=== PATIENT | female | born 1980 | race African-American/Black ===

== ENCOUNTER 2019-06-16 07:23 | Inpatient (IN) | payer MEDICAID ==
[~2019-06-16] VITALS: Ht 167.6 cm; Wt 130.0 kg
[2019-06-16] MEDS ORDERED: METHYLPREDNISOLONE SOD SUCC 125 MG/2 ML VIAL IV STA (07:41)
[2019-06-16] MEDS ORDERED: MORPHINE SULFATE 4 MG/ML CPJ (NOT FOR IM USE) IV STA (07:41)
[2019-06-16] MEDS ORDERED: ALBUTEROL (0.083%) 2.5MG/3ML NEB HHN STA (07:41)
[2019-06-16] MEDS ORDERED: IPRATROPIUM BROMIDE (0.02%) 0.5MG/2.5ML NEB HHN STA (07:41)
[2019-06-16] MEDS ORDERED: ONDANSETRON HCL 4MG/2ML INJ IV STA (07:41)
[2019-06-16] MEDS ORDERED: MAGNESIUM 2 G PREMIX 50 ML IV STA (07:41)
[2019-06-16] MEDS ORDERED: ASPIRIN 81MG TABLET PO ONE (07:45)
[2019-06-16 08:12] LABS: BASOPHILS % 1.3 % (0.0-2.0); EOSINOPHILS % 0.2 % (0.0-5.0); HEMOGLOBIN. 11.5 g/dL (12.0-16.0); LYMPHOCYTES % 35.1 % (20.0-50.0); MEAN CORPUSCULAR HEMOGLOBIN 26.7 pg (28.0-32.0); MEAN CORPUSCULAR VOLUME 81.1 fL (81.0-99.0); MEAN PLATELET VOLUME 8.3 fl (7.4-10.4); MONOCYTES % 8.1 % (2.0-8.0); NEUTROPHILS % 55.3 % (40.0-76.0); PLATELET 380 x1000/uL (130-400); RED BLOOD CELL COUNT 4.31 mill/uL (4.2-5.4); RED CELL DISTRIBUTION WIDTH 16.5 % (11.6-14.6)
[2019-06-16 08:18] LABS: CHLORIDE 106 mEq/L (98-107)
[2019-06-16 08:28] LABS: HCG SCREEN NEGATIVE
[2019-06-16] MEDS ORDERED: LISINOPRIL 20MG TABLET PO ONE (08:30)
[2019-06-16] MEDS ORDERED: HYDROCHLOROTHIAZIDE 25MG TABLET PO ONE (08:30)
[2019-06-16] MEDS ORDERED: FUROSEMIDE 20MG/2ML VIAL IVP ONE (08:45)
[2019-06-16] MEDS ORDERED: DIPHENHYDRAMINE 50MG/ML VIAL IV PRN (10:45)
[2019-06-16] MEDS ORDERED: ONDANSETRON HCL 4MG/2ML INJ IV PRN (10:45)
[2019-06-16] MEDS ORDERED: GUAIFENESIN 200MG/10ML SUGAR FREE UDC PO PRN (10:45)
[2019-06-16] MEDS ORDERED: HYDROCODONE/ACETAMINOPHEN 5/325MG TABLET PO PRN (10:45)
[2019-06-16] MEDS ORDERED: IPRATROPIUM/ALBUTEROL 0.5-3(2.5)MG/3ML NEB INH PRN (10:45)
[2019-06-16] MEDS ORDERED: HYDRALAZINE 20MG/ML VIAL IV ONE (10:45)
[2019-06-16] MEDS ORDERED: MAGNESIUM/ALUMINUM HYDROXIDE/SIMETHICONE 30ML UDC PO PRN (10:45)
[2019-06-16] MEDS ORDERED: ACETAMINOPHEN 325MG TABLET PO PRN (10:45)
[2019-06-16 11:13] LABS: PHOSPHORUS 2.5 mg/dL (2.5-4.9)
[2019-06-16] MEDS ORDERED: HYDRALAZINE 20MG/ML VIAL IV NR (11:15)
[2019-06-16] MEDS: CLONIDINE 0.1MG TABLET PO PRN (11:18)
[2019-06-16] MEDS ORDERED: HYDR25TA PO (13:04)
[2019-06-16] MEDS ORDERED: ALBU2.5V13 IH (13:04)
[2019-06-16] MEDS ORDERED: LISI10TA5 PO (13:04)
[2019-06-16] MEDS ORDERED: TIOT4MIS2 IH (13:04)
[2019-06-16] MEDS ORDERED: ASPI-1393 PO (13:04)
[2019-06-16 13:15] VITALS: BP 188/104
[2019-06-16] MEDS: ENOXAPARIN 40MG/0.4ML SYR SUBCUT SCH ×2 (13:31→21:54)
[2019-06-16] MEDS: FUROSEMIDE 40MG/4ML VIAL IVP SCH ×2 (14:11→19:02)
[2019-06-16] MEDS: DOCUSATE SODIUM 100MG CAPSULE PO PRN (14:11)
[2019-06-16] MEDS: CARVEDILOL 3.125 MG TABLET PO SCH ×2 (14:11→21:53)
[2019-06-16] MEDS: AMLODIPINE 5MG TABLET PO SCH ×2 (14:11→21:54)
[2019-06-16 16:00] VITALS: BP 160/67
[2019-06-16 17:33] LABS: CREATINE KINASE 88 IU/L (26-192); CREATINE KINASE MB FRACTION < 1.0 ng/mL (0.5-3.6)
[2019-06-16] MEDS: CYCLOBENZAPRINE 10MG TABLET PO PRN (19:02)
[2019-06-16 20:00] VITALS: BP 175/94
[2019-06-16] MEDS: LISINOPRIL 20MG TABLET PO SCH (21:54)
[2019-06-17 00:16] VITALS: BP 163/95
[2019-06-17 01:05] LABS: CREATINE KINASE 85 IU/L (26-192)
[2019-06-17 01:06] LABS: CREATINE KINASE MB FRACTION < 1.0 ng/mL (0.5-3.6)
[2019-06-17 04:00] VITALS: BP 151/79
[2019-06-17 06:03] LABS: CHLORIDE 103 mEq/L (98-107)
[2019-06-17 06:17] LABS: LDL CHOLESTEROL 121 mg/dL (5-100)
[2019-06-17 06:18] LABS: HDL CHOLESTEROL 63 mg/dL (40-59)
[2019-06-17 06:21] LABS: HEMATOCRIT. 35.9 % (36.0-48.0); HEMOGLOBIN. 11.5 g/dL (12.0-16.0); LYMPHOCYTES % 15.7 % (20.0-50.0); MEAN CORPUSCULAR HEMOGLOBIN 25.8 pg (28.0-32.0); MEAN CORPUSCULAR VOLUME 80.3 fL (81.0-99.0); MEAN PLATELET VOLUME 8.7 fl (7.4-10.4); MONOCYTES % 7.3 % (2.0-8.0); PLATELET 424 x1000/uL (130-400); RED BLOOD CELL COUNT 4.48 mill/uL (4.2-5.4); RED CELL DISTRIBUTION WIDTH 16.6 % (11.6-14.6)
[2019-06-17 08:00] VITALS: BP 193/100
[2019-06-17] MEDS: CLONIDINE 0.1MG TABLET PO PRN (08:06)
[2019-06-17] MEDS: DOCUSATE SODIUM 100MG CAPSULE PO PRN (08:06)
[2019-06-17] MEDS: FUROSEMIDE 40MG/4ML VIAL IVP SCH ×2 (08:06→16:25)
[2019-06-17] MEDS: AMLODIPINE 5MG TABLET PO SCH (08:07)
[2019-06-17] MEDS: LISINOPRIL 20MG TABLET PO SCH ×2 (08:07→22:24)
[2019-06-17] MEDS: CARVEDILOL 3.125 MG TABLET PO SCH (08:07)
[2019-06-17] MEDS: ENOXAPARIN 40MG/0.4ML SYR SUBCUT SCH ×2 (08:08→22:25)
[2019-06-17 12:00] VITALS: BP 167/104
[2019-06-17] MEDS: HYDRALAZINE HCL 100MG TABLET PO SCH ×2 (12:50→22:24)
[2019-06-17] MEDS: POTASSIUM CHLORIDE 20MEQ TABLET SR PO SCH (14:34)
[2019-06-17] MEDS: VERAPAMIL HCL 40MG TABLET PO SCH ×2 (14:34→22:24)
[2019-06-17] MEDS: CLONIDINE 0.1MG TABLET PO SCH ×2 (14:34→22:25)
[2019-06-17 16:00] VITALS: BP 142/76
[2019-06-17 16:14] LABS: CLARITY URINE CLEAR (CLEAR); COLOR URINE YELLOW (YELLOW); KETONES URINE NEGATIVE (NEGATIVE); LEUKOCYTE ESTERASE URINE NEGATIVE (NEGATIVE); NITRITE URINE NEGATIVE (NEGATIVE); OCCULT BLOOD URINE 2+ (NEGATIVE); PH URINE 5.5 (4.5-8.0); PROTEIN URINE NEGATIVE (NEGATIVE); SPECIFIC GRAVITY URINE 1.016 (1.005-1.030); UROBILINOGEN URINE 0.2 E.U./dL (0.2-1.0)
[2019-06-17 16:22] LABS: *AMPHETAMINES SCREEN URINE NEGATIVE (NEGATIVE); *BARBITURATES SCREEN URINE NEGATIVE (NEGATIVE); *BENZODIAZEPINES SCREEN URINE NEGATIVE (NEGATIVE); *COCAINE SCREEN URINE NEGATIVE (NEGATIVE)
[2019-06-17 16:23] LABS: METHADONE URINE SCREEN NEGATIVE (NEGATIVE); PHENCYCLIDINE URINE SCREEN NEGATIVE (NEGATIVE)
[2019-06-17 16:28] LABS: CANNABINOID URINE SCREEN PRESUMTIVE POSITIVE (NEGATIVE); OPIATES URINE SCREEN PRESUMTIVE POSITIVE (NEGATIVE)
[2019-06-17 20:00] VITALS: BP 179/98
[2019-06-17] MEDS ORDERED: METOPROLOL TARTRATE 50MG TABLET PO SCH (21:00)
[2019-06-17] MEDS ORDERED: ATORVASTATIN CALCIUM 40MG TABLET PO SCH (21:00)
[2019-06-17] MEDS: CYCLOBENZAPRINE 10MG TABLET PO PRN (22:24)
[2019-06-17] MEDS: BUDESONIDE 0.5MG/2ML NEB HHN SCH (23:44)
[2019-06-18] VITALS: BP 148/78
[2019-06-18 05:25] VITALS: BP 195/112
[2019-06-18] MEDS: VERAPAMIL HCL 40MG TABLET PO SCH (05:27)
[2019-06-18] MEDS: CLONIDINE 0.1MG TABLET PO SCH (05:27)
[2019-06-18] MEDS: CLONIDINE 0.1MG TABLET PO PRN (05:27)
[2019-06-18 06:22] VITALS: BP 139/91
[2019-06-18 08:00] VITALS: BP 124/86
[2019-06-18] MEDS: LISINOPRIL 20MG TABLET PO SCH (08:16)
[2019-06-18] MEDS: CYCLOBENZAPRINE 10MG TABLET PO PRN (08:16)
[2019-06-18] MEDS: HYDRALAZINE HCL 100MG TABLET PO SCH (08:16)
[2019-06-18] MEDS: POTASSIUM CHLORIDE 20MEQ TABLET SR PO SCH (08:17)
[2019-06-18] MEDS: ENOXAPARIN 40MG/0.4ML SYR SUBCUT SCH (08:17)
[2019-06-18] MEDS: FUROSEMIDE 40MG/4ML VIAL IVP SCH (08:17)
[2019-06-18] MEDS: BUDESONIDE 0.5MG/2ML NEB HHN SCH (09:03)
[2019-06-18 12:00] VITALS: BP 132/68
[2019-06-18] MEDS ORDERED: HYDR100T26 PO (16:10)
[2019-06-18] MEDS ORDERED: POTA20TA82 PO (16:10)
[2019-06-18] MEDS ORDERED: LISI-604 PO (16:10)
[2019-06-18] MEDS ORDERED: FURO40TA5 MT ×2 (16:10→16:12)
[2019-06-18] MEDS ORDERED: CLON0.1T14 PO (16:10)
[2019-06-18] MEDS ORDERED: VER40 PO (16:10)
[2019-06-18] MEDS ORDERED: LIP40 PO (16:10)
[2019-06-18 17:21] VITALS: BP 151/94
== END 2019-06-18 17:40 | disposition home or self-care (01) | DRG 194 ==
LOC: ER 07:23 → 7WST 09:04 → EDBEDREQ 09:06 → ENRESERV 10:13
PROVIDERS: ADMIT Internal Medicine; ATTEND Internal Medicine
DX: I11.0 Hypertensive heart disease with heart failure (principal); E66.01 Morbid (severe) obesity due to excess calories; I50.33 Acute on chronic diastolic (congestive) heart failure; E83.41 Hypermagnesemia; R07.2 Precordial pain; D64.9 Anemia, unspecified; J44.9 Chronic obstructive pulmonary disease, unspecified; F10.10 Alcohol abuse, uncomplicated; Z82.49 Family history of ischemic heart disease and other diseases of the circulatory system; Z98.891 History of uterine scar from previous surgery; Z71.3 Dietary counseling and surveillance; Z68.42 Body mass index [BMI] 45.0-49.9, adult
CPT/HCPCS: 36415; 71045; 72070; 72100; 80061; 80305; 82550; 82553; 83036; 83735; 83880; 84100; 84443; 84484; 84703; 93005; 93306; 93970; 94640; 94644; 96365; 96375; 97162; 97166; 99291; J0360; J1650; J1940; J2270; J2405; J2930; J3475; J7611; J7626

== ENCOUNTER 2021-05-31 19:13 | Inpatient (IN) | payer OTHER ==
[~2021-05-31] VITALS: Ht 167.6 cm; Wt 165.6 kg
[~2021-05-31 19:13] MED LIST: ALBU2.5V13 IH; ASPI-1497 PO; DILT120C88 PO; FERR325T6 MT; FLUT100B INH; FLUT1BLS3 INH; FURO-151 MT; FURO40TA5 PO; HYDR100T26 PO; HYDR25TA PO; IBUP-2030 MT; IPRA3AMP31 IH; LOSA100T3 PO; METO100T16 PO; MINO2.5T19 PO; POTA-9 MT; QUET200T MT; SERT100T PO; TIOT4MIS2 IH; TRAZ-252 MT; VARE0.5T MT
[2021-05-31 21:45] LABS: BASOPHILS % 0.4 % (0.0-2.0); EOSINOPHILS % 0.1 % (0.0-5.0); HEMATOCRIT. 32.6 % (36.0-48.0); HEMOGLOBIN. 11.2 g/dL (12.0-16.0); LYMPHOCYTES % 31.3 % (20.0-50.0); MEAN CORPUSCULAR HEMOGLOBIN 28.7 pg (28.0-32.0); MEAN CORPUSCULAR VOLUME 83.9 fL (81.0-99.0); MEAN PLATELET VOLUME 8.4 fl (7.4-10.4); MONOCYTES % 11.2 % (2.0-8.0); PLATELET 330 x1000/uL (130-400); RED BLOOD CELL COUNT 3.88 mill/uL (4.2-5.4); RED CELL DISTRIBUTION WIDTH 15.7 % (11.6-14.6)
[2021-05-31 21:50] LABS: CHLORIDE 106 mEq/L (98-107)
[2021-05-31] MEDS ORDERED: FUROSEMIDE 40MG/4ML VIAL IVP ONE (22:45)
[2021-05-31] MEDS ORDERED: POTASSIUM CHLORIDE 20MEQ TABLET SR PO ONE (23:00)
[2021-06-01] MEDS ORDERED: HYDRALAZINE HCL 50MG TABLET PO SCH (07:00)
[2021-06-01] MEDS: FUROSEMIDE 40MG/4ML VIAL IVP SCH ×2 (07:04→18:10)
[2021-06-01 08:00] VITALS: BP 172/77
[2021-06-01] MEDS ORDERED: ENOXAPARIN 40MG/0.4ML SYR SUBCUT SCH (09:00)
[2021-06-01] MEDS ORDERED: LISINOPRIL 20MG TABLET PO SCH (09:00)
[2021-06-01] MEDS: ASPIRIN 81MG TABLET PO SCH (09:08)
[2021-06-01] MEDS: ENOXAPARIN 40MG/0.4ML SYR SUBCUT SCH ×2 (09:09→20:26)
[2021-06-01 12:00] VITALS: BP 202/100
[2021-06-01] MEDS: NICOTINE 14MG PATCH TD SCH (13:06)
[2021-06-01] MEDS: CLONIDINE 0.1MG TABLET PO PRN ×2 (13:06→20:26)
[2021-06-01] MEDS: HYDRALAZINE HCL 100MG TABLET PO SCH ×2 (13:07→21:39)
[2021-06-01 14:07] VITALS: BP 183/91
[2021-06-01] MEDS ORDERED: CLONIDINE 0.1MG TABLET PO SCH ×2 (15:00→22:00)
[2021-06-01 16:00] VITALS: BP 161/86
[2021-06-01] MEDS: DILTIAZEM HCL 60MG TABLET PO SCH ×2 (18:10→23:26)
[2021-06-01 20:00] VITALS: BP 176/96
[2021-06-01] MEDS: LISINOPRIL 20MG TABLET PO SCH (20:26)
[2021-06-01] MEDS: SERTRALINE HCL 100MG TABLET PO SCH (20:27)
[2021-06-01] MEDS: QUETIAPINE FUMARATE 50MG TABLET PO SCH (20:27)
[2021-06-01] MEDS: TRAZODONE HCL 50MG TABLET PO SCH (20:27)
[2021-06-01] MEDS: CLONIDINE 0.2MG TABLET PO SCH (21:39)
[2021-06-02] VITALS (7 sets, daily range): BP systolic 142–207; BP diastolic 71–116
[2021-06-02] MEDS: HYDRALAZINE HCL 100MG TABLET PO SCH ×3 (05:12→23:33)
[2021-06-02] MEDS: DILTIAZEM HCL 60MG TABLET PO SCH ×2 (05:12→11:40)
[2021-06-02] MEDS: CLONIDINE 0.2MG TABLET PO SCH ×3 (05:12→23:34)
[2021-06-02] MEDS: FUROSEMIDE 40MG/4ML VIAL IVP SCH (05:12)
[2021-06-02] MEDS: ENOXAPARIN 40MG/0.4ML SYR SUBCUT SCH ×2 (09:19→20:55)
[2021-06-02] MEDS: NICOTINE 14MG PATCH TD SCH (09:19)
[2021-06-02] MEDS: ASPIRIN 81MG TABLET PO SCH (09:19)
[2021-06-02] MEDS: LISINOPRIL 20MG TABLET PO SCH ×2 (09:20→20:54)
[2021-06-02] MEDS ORDERED: METOLAZONE 2.5MG TABLET PO NR (11:15)
[2021-06-02 12:51] LABS: CHLORIDE 102 mEq/L (98-107)
[2021-06-02] MEDS: POTASSIUM CHLORIDE 20MEQ TABLET SR PO SCH (16:17)
[2021-06-02] MEDS: CLONIDINE 0.1MG TABLET PO PRN (16:18)
[2021-06-02] MEDS: FUROSEMIDE 100MG/10ML VIAL IVP SCH (17:44)
[2021-06-02] MEDS: DILTIAZEM HCL 90MG TABLET PO SCH (17:45)
[2021-06-02] MEDS: SERTRALINE HCL 100MG TABLET PO SCH (20:44)
[2021-06-02] MEDS: QUETIAPINE FUMARATE 50MG TABLET PO SCH (20:53)
[2021-06-02] MEDS: MINOXIDIL 2.5MG TABLET PO SCH (20:53)
[2021-06-02] MEDS: TRAZODONE HCL 50MG TABLET PO SCH (20:54)
[2021-06-03] VITALS: BP 150/97
[2021-06-03] MEDS: DILTIAZEM HCL 90MG TABLET PO SCH ×2 (01:05→05:53)
[2021-06-03 04:00] VITALS: BP 155/86
[2021-06-03 05:38] LABS: CHLORIDE 98 mEq/L (98-107)
[2021-06-03] MEDS: HYDRALAZINE HCL 100MG TABLET PO SCH ×3 (05:54→22:25)
[2021-06-03] MEDS: CLONIDINE 0.2MG TABLET PO SCH ×3 (05:55→22:25)
[2021-06-03] MEDS: FUROSEMIDE 100MG/10ML VIAL IVP SCH ×2 (05:55→18:05)
[2021-06-03 08:20] VITALS: BP 157/73
[2021-06-03] MEDS: LISINOPRIL 20MG TABLET PO SCH ×2 (09:46→21:06)
[2021-06-03] MEDS: POTASSIUM CHLORIDE 20MEQ TABLET SR PO SCH (09:47)
[2021-06-03] MEDS: ASPIRIN 81MG TABLET PO SCH (09:47)
[2021-06-03] MEDS: ENOXAPARIN 40MG/0.4ML SYR SUBCUT SCH ×2 (09:47→21:05)
[2021-06-03] MEDS: MINOXIDIL 2.5MG TABLET PO SCH ×2 (09:47→21:06)
[2021-06-03] MEDS: NICOTINE 14MG PATCH TD SCH (09:47)
[2021-06-03 12:00] VITALS: BP 155/85
[2021-06-03 16:00] VITALS: BP 159/88
[2021-06-03] MEDS: DILTIAZEM HCL 60MG TABLET PO SCH (18:06)
[2021-06-03 20:00] VITALS: BP 162/79
[2021-06-03 20:18] LABS: BG BASE EXCESS 12.6 mmol/L (-2.0-2.0); BG CARBOXYHEMOGLOBIN 1.1 % (0.5-1.5); BG DEOXYHEMOGLOBIN 7.7 % (0.0-5.0); BG HCO3 ACT 38.1 mmol/L (22.0-26.0); BG METHEMOGLOBIN 0.2 % (0.0-1.5); BG OXYGEN SATURATION 92.2 % (92.0-98.5); BG PCO2 52.3 mmHg (35.0-45.0); BG PO2 60.9 mmHg (75.0-100.0); BG SAMPLE SITE LEFT RADIAL; BG TOTAL HEMOGLOBIN 12.8 g/dL (12.0-18.0); BG VENT MODE ROOM AIR
[2021-06-03] MEDS: QUETIAPINE FUMARATE 50MG TABLET PO SCH (21:05)
[2021-06-03] MEDS: SERTRALINE HCL 100MG TABLET PO SCH (21:05)
[2021-06-03] MEDS: TRAZODONE HCL 50MG TABLET PO SCH (21:06)
[2021-06-03] MEDS: BUDESONIDE 0.5MG/2ML NEB HHN SCH (21:30)
[2021-06-04] VITALS: BP 159/72
[2021-06-04] MEDS: DILTIAZEM HCL 60MG TABLET PO SCH ×3 (00:44→12:56)
[2021-06-04 04:00] VITALS: BP 127/75
[2021-06-04] MEDS: CLONIDINE 0.2MG TABLET PO SCH ×2 (06:34→14:24)
[2021-06-04] MEDS: HYDRALAZINE HCL 100MG TABLET PO SCH ×2 (06:34→14:24)
[2021-06-04] MEDS: FUROSEMIDE 100MG/10ML VIAL IVP SCH (06:35)
[2021-06-04 08:29] VITALS: BP 146/78
[2021-06-04] MEDS: ASPIRIN 81MG TABLET PO SCH (08:36)
[2021-06-04] MEDS: POTASSIUM CHLORIDE 20MEQ TABLET SR PO SCH (08:36)
[2021-06-04] MEDS: NICOTINE 14MG PATCH TD SCH (08:36)
[2021-06-04] MEDS: MINOXIDIL 2.5MG TABLET PO SCH (08:36)
[2021-06-04] MEDS: LISINOPRIL 20MG TABLET PO SCH (08:36)
[2021-06-04] MEDS: ENOXAPARIN 40MG/0.4ML SYR SUBCUT SCH (08:37)
[2021-06-04] MEDS: BUDESONIDE 0.5MG/2ML NEB HHN SCH (09:14)
[2021-06-04 12:10] VITALS: BP 155/77
[2021-06-04] MEDS ORDERED: POTA20TA82 MT (12:54)
[2021-06-04] MEDS ORDERED: FURO80TA87 MT (12:54)
[2021-06-04 13:35] VITALS: BP 155/77
[2021-06-04] MEDS ORDERED: MINOXIDIL 2.5MG TABLET PO SCH (21:00)
== END 2021-06-04 14:50 | disposition home or self-care (01) | DRG 133 ==
LOC: ER 20:08 → 5WST 22:48 → ENRESERV 06-01 04:45
PROVIDERS: ADMIT Internal Medicine; ATTEND Internal Medicine
PROC: 5A09457 Assistance with Respiratory Ventilation, 24-96 Consecutive Hours, Continuous Positive Airway Pressure (ICD-10-PCS; principal; 2021-06-01)
DX: J96.01 Acute respiratory failure with hypoxia (principal); I50.33 Acute on chronic diastolic (congestive) heart failure; Z68.43 Body mass index [BMI] 50.0-59.9, adult; E66.2 Morbid (severe) obesity with alveolar hypoventilation; I11.0 Hypertensive heart disease with heart failure; J44.9 Chronic obstructive pulmonary disease, unspecified; F41.9 Anxiety disorder, unspecified; F32.9 Major depressive disorder, single episode, unspecified; F17.210 Nicotine dependence, cigarettes, uncomplicated; E87.6 Hypokalemia; D64.9 Anemia, unspecified; Z98.891 History of uterine scar from previous surgery; Z79.899 Other long term (current) drug therapy; Z79.1 Long term (current) use of non-steroidal anti-inflammatories (NSAID); Z71.6 Tobacco abuse counseling
CPT/HCPCS: 36415; 36600; 71045; 80048; 80053; 82375; 82805; 83880; 84484; 85025; 93005; 94640; 94660; 99285; C1893; J1650; J1940; J7626

== ENCOUNTER 2022-02-16 15:47 | Inpatient (IN) | payer MEDICAID, OTHER ==
[~2022-02-16] VITALS: Ht 167.6 cm; Wt 150.8 kg
[~2022-02-16 15:47] MED LIST changes: +FURO80TA87 MT; +POTA20TA82 MT
[2022-02-16 17:43] LABS: BASOPHILS % 0.7 % (0.0-2.0); EOSINOPHILS % 0.1 % (0.0-5.0); HEMATOCRIT. 38.9 % (36.0-48.0); HEMOGLOBIN. 13.3 g/dL (12.0-16.0); LYMPHOCYTES % 31.3 % (20.0-50.0); MEAN CORPUSCULAR HEMOGLOBIN 29.6 pg (28.0-32.0); MEAN CORPUSCULAR VOLUME 86.4 fL (81.0-99.0); MEAN PLATELET VOLUME 8.5 fl (7.4-10.4); MONOCYTES % 10.8 % (2.0-8.0); NEUTROPHILS % 57.1 % (40.0-76.0); PLATELET 335 x1000/uL (130-400)
[2022-02-16 17:47] LABS: CHLORIDE 103 mEq/L (98-107)
[2022-02-16] MEDS ORDERED: ENALAPRIL 1.25MG/ML VIAL 1ML IV ONE (18:00)
[2022-02-16] MEDS ORDERED: FUROSEMIDE 40MG/4ML VIAL IV ONE (18:00)
[2022-02-16] MEDS ORDERED: NITROGLYCERIN OINT 1GM/INCH UDPKT TD ONE (18:00)
[2022-02-16] MEDS ORDERED: LABETALOL 5MG/ML SYR 20 MG/4 ML SYRINGE IV NR (20:55)
[2022-02-16] MEDS ORDERED: HYDRALAZINE 20MG/ML VIAL IV ONE (21:00)
[2022-02-16] MEDS ORDERED: LABETALOL HCL VIAL 20 MG/4 ML VIAL IV ONE (21:00)
[2022-02-16] MEDS ORDERED: HYDROCODONE/ACETAMINOPHEN 10/325MG TABLET PO PRN (22:45)
[2022-02-17] MEDS: CLONIDINE 0.1MG TABLET PO PRN ×4 (01:44→16:49)
[2022-02-17] MEDS ORDERED: ONDANSETRON HCL 4MG/2ML INJ IV PRN (09:00)
[2022-02-17] MEDS: FUROSEMIDE 100MG/10ML VIAL IVP SCH ×2 (09:44→16:49)
[2022-02-17] MEDS: LOSARTAN POTASSIUM 100 MG TABLET PO SCH (09:44)
[2022-02-17 12:00] VITALS: BP 197/124
[2022-02-17] MEDS ORDERED: IPRATROPIUM/ALBUTEROL 0.5-3(2.5)MG/3ML NEB HHN PRN (12:00)
[2022-02-17 12:04] VITALS: BP 197/124
[2022-02-17] MEDS: CLONIDINE 0.2MG TABLET PO SCH ×2 (14:08→21:31)
[2022-02-17 16:00] VITALS: BP 181/118
[2022-02-17] MEDS: DILTIAZEM HCL 90MG TABLET PO SCH ×2 (16:50→23:02)
[2022-02-17 17:04] LABS: *BARBITURATES SCREEN URINE NEGATIVE (NEGATIVE); *BENZODIAZEPINES SCREEN URINE NEGATIVE (NEGATIVE)
[2022-02-17 17:05] LABS: *AMPHETAMINES SCREEN URINE NEGATIVE (NEGATIVE); *COCAINE SCREEN URINE NEGATIVE (NEGATIVE); METHADONE URINE SCREEN NEGATIVE (NEGATIVE); PHENCYCLIDINE URINE SCREEN NEGATIVE (NEGATIVE)
[2022-02-17 17:10] LABS: CANNABINOID URINE SCREEN PRESUMTIVE POSITIVE (NEGATIVE); OPIATES URINE SCREEN PRESUMTIVE POSITIVE (NEGATIVE)
[2022-02-17 20:00] VITALS: BP 164/112
[2022-02-17] MEDS: HYDRALAZINE 20MG/ML VIAL IV PRN (23:16)
[2022-02-18] VITALS: BP 179/113
[2022-02-18] MEDS: CLONIDINE 0.1MG TABLET PO PRN (02:10)
[2022-02-18 04:00] VITALS: BP 171/114
[2022-02-18] MEDS: DILTIAZEM HCL 90MG TABLET PO SCH ×2 (05:12→11:24)
[2022-02-18] MEDS: CLONIDINE 0.2MG TABLET PO SCH ×2 (05:13→14:22)
[2022-02-18 08:00] VITALS: BP 191/100
[2022-02-18] MEDS: HYDRALAZINE 20MG/ML VIAL IV PRN (09:37)
[2022-02-18] MEDS: LOSARTAN POTASSIUM 100 MG TABLET PO SCH (09:37)
[2022-02-18] MEDS: FUROSEMIDE 100MG/10ML VIAL IVP SCH (11:15)
[2022-02-18] MEDS ORDERED: NALOXONE HCL 0.4MG/ML VIAL IV PRN (11:15)
[2022-02-18] MEDS ORDERED: MINOXIDIL 2.5MG TABLET PO SCH ×2 (13:00→21:00)
[2022-02-18] MEDS ORDERED: METOLAZONE 2.5MG TABLET PO SCH (14:00)
[2022-02-18] MEDS ORDERED: DILTIAZEM HCL 60MG TABLET PO SCH (18:00)
== END 2022-02-18 16:34 | disposition left against medical advice (07) | DRG 194 ==
LOC: ER 15:47 → MICUSO 21:20 → 7EST 02-17 11:55
PROVIDERS: ADMIT Internal Medicine; ATTEND Internal Medicine
DX: I11.0 Hypertensive heart disease with heart failure (principal); I27.20 Pulmonary hypertension, unspecified; I50.33 Acute on chronic diastolic (congestive) heart failure; Z68.43 Body mass index [BMI] 50.0-59.9, adult; E66.01 Morbid (severe) obesity due to excess calories; J44.9 Chronic obstructive pulmonary disease, unspecified; F32.A Depression, unspecified; Z20.822 Contact with and (suspected) exposure to COVID-19; Z53.29 Procedure and treatment not carried out because of patient's decision for other reasons; F41.9 Anxiety disorder, unspecified; Z98.891 History of uterine scar from previous surgery; Z79.84 Long term (current) use of oral hypoglycemic drugs; Z79.899 Other long term (current) drug therapy; Z79.1 Long term (current) use of non-steroidal anti-inflammatories (NSAID); Z79.82 Long term (current) use of aspirin
CPT/HCPCS: 36415; 71045; 80053; 80305; 83880; 84484; 85025; 87426; 93005; 93306; 93970; 99291; J0360; J1940; J3490; J7040

== ENCOUNTER 2023-06-21 14:36 | Emergency (ER) | payer MEDICAID, OTHER ==
[~2023-06-21] VITALS: Ht 167.6 cm; Wt 143.0 kg
[~2023-06-21 14:36] MED LIST changes: -LOSA100T3 PO; +LOSA100T4 PO; +POTA-202 MT; +POTA-205 MT; -POTA-9 MT; -POTA20TA82 MT
[2023-06-21 14:44] VITALS: O2SAT 95
[2023-06-21 16:17] LABS: BASOPHILS % 0.6 % (0.0-2.0); HEMATOCRIT. 36.6 % (36.0-48.0); LYMPHOCYTES % 32.9 % (20.0-50.0); MEAN CORPUSCULAR HEMOGLOBIN 28.6 pg (28.0-32.0); MEAN PLATELET VOLUME 8.1 fl (7.4-10.4); MONOCYTES % 9.3 % (2.0-8.0); NEUTROPHILS % 57.2 % (40.0-76.0); PLATELET 370 x1000/uL (130-400); RED BLOOD CELL COUNT 4.21 mill/uL (4.2-5.4); RED CELL DISTRIBUTION WIDTH 17.7 % (11.6-14.6)
[2023-06-21 16:21] LABS: CHLORIDE 111 mEq/L (98-107)
[2023-06-21 16:36] LABS: HCG SCREEN NEGATIVE
[2023-06-21] MEDS ORDERED: FUROSEMIDE 40MG/4ML VIAL IVP ONE (17:00)
[2023-06-21] MEDS ORDERED: POTASSIUM CHLORIDE 20MEQ TABLET SR PO ONE (17:00)
[2023-06-21] MEDS ORDERED: ASPIRIN 81MG TABLET PO ONE (17:00)
[2023-06-21 17:25] VITALS: BP 158/92; PULSE 86; RESP 20; TEMP 98.6
[2023-06-30] MEDS ORDERED: METF-818 MT (22:30)
[2023-06-30] MEDS ORDERED: NIFE-32 MT (22:31)
[2023-06-30] MEDS ORDERED: CLON-457 PO (22:32)
[2023-06-30] MEDS ORDERED: LURA120T MT (22:34)
[2023-06-30] MEDS ORDERED: RISP05 MT (22:34)
== END 2023-06-21 18:37 | disposition left against medical advice (07) ==
LOC: ER 14:47 → CANBEDREQ 18:31 → ER 18:37
DX: R07.89 Other chest pain (principal); I10 Essential (primary) hypertension; F32.9 Major depressive disorder, single episode, unspecified; F41.9 Anxiety disorder, unspecified; I11.0 Hypertensive heart disease with heart failure; I50.9 Heart failure, unspecified; J44.9 Chronic obstructive pulmonary disease, unspecified
CPT/HCPCS: 80053; 81025; 84703; 83880; 85025; 84484; 36415; 71045; 93005; 96374; 99291; Z7610 ×3; J1940

== ENCOUNTER 2023-08-17 09:49 | Emergency (ER) | payer OTHER ==
[~2023-08-17] VITALS: Ht 167.6 cm; Wt 153.0 kg
[~2023-08-17 09:49] MED LIST changes: -ALBU2.5V13 IH; +CLON-457 PO; -FERR325T6 MT; -FLUT100B INH; -FLUT1BLS3 INH; -FURO40TA5 PO; -IBUP-2030 MT; -IPRA3AMP31 IH; +LURA120T MT; +METF-818 MT; +NIFE-32 MT; +RISP05 MT; -TIOT4MIS2 IH
[2023-08-17 09:54] VITALS: BP 184/85; PULSE 109; RESP 20; TEMP 98.3; O2SAT 99
[2023-08-17 10:41] LABS: BASOPHILS % 0.4 % (0.0-2.0); HEMATOCRIT. 37.3 % (36.0-48.0); HEMOGLOBIN. 11.9 g/dL (12.0-16.0); LYMPHOCYTES % 22.3 % (20.0-50.0); MEAN CORPUSCULAR HEMOGLOBIN 28.7 pg (28.0-32.0); MEAN CORPUSCULAR HGB CONC 31.9 g/dL (31.0-37.0); MEAN CORPUSCULAR VOLUME 90.1 fL (81.0-99.0); MEAN PLATELET VOLUME 8.6 fl (7.4-10.4); MONOCYTES % 10.7 % (2.0-8.0); NEUTROPHILS % 66.6 % (40.0-76.0); PLATELET 291 x1000/uL (130-400); RED BLOOD CELL COUNT 4.13 mill/uL (4.2-5.4); RED CELL DISTRIBUTION WIDTH 20.1 % (11.6-14.6); WHITE BLOOD COUNT 8.7 x1000/uL (4.5-11.0)
[2023-08-17] MEDS ORDERED: IPRATROPIUM BROMIDE (0.02%) 0.5MG/2.5ML NEB HHN STA (10:43)
[2023-08-17 10:46] LABS: INR 1.1; PROTHROMBIN TIME 11.5 sec (9.6-11.0)
[2023-08-17 10:57] LABS: CHLORIDE 108 mEq/L (98-107); INDEX HEMOLYSI 1 (1-3); INDEX ICTERIC 1 (1-4); INDEX LIPEMIC 1 (1-3); POTASSIUM 3.1 mEq/L (3.5-5.1); SODIUM 141 mEq/L (136-145)
[2023-08-17] MEDS ORDERED: ALBUTEROL (0.083%) 2.5MG/3ML NEB HHN SCH (11:00)
[2023-08-17 11:08] LABS: ALANINE AMINOTRANSFERASE 18 IU/L (13-61); ASPARTATE AMINOTRANSFERASE 12 IU/L (15-37); BILIRUBIN TOTAL 0.4 mg/dL (0.1-1.0); CALCIUM 8.4 mg/dL (8.5-10.1); CARBON DIOXIDE 29 mEq/L (21-32); CREATININE 0.8 mg/dL (0.6-1.3); GLUCOSE 88 mg/dL (70-105); NT PRO B-TYPE NATRIURETIC PEP 3452 pg/mL (5-125); PROTEIN TOTAL 7.1 g/dL (6.0-8.3); TROPONIN I HIGH SENSITIVITY 25 ng/L (<54); UREA NITROGEN BLOOD 11 mg/dL (7-21)
[2023-08-17] MEDS ORDERED: FUROSEMIDE 40MG/4ML VIAL IVP ONE (11:45)
[2023-08-17] MEDS ORDERED: POTASSIUM CHLORIDE 20MEQ TABLET SR PO ONE (12:00)
[2023-08-17 16:09] LABS: TROPONIN I HIGH SENSITIVITY 22 ng/L (<54)
== END 2023-08-17 21:27 | disposition home or self-care (01) ==
LOC: ER 09:49 → EDBEDREQ 16:31 → EDBEDREQSVC 17:36 → EDBEDREQTM 17:36 → CANBEDREQ 21:25 → ER 21:27
DX: I11.0 Hypertensive heart disease with heart failure (principal); I50.9 Heart failure, unspecified; F41.9 Anxiety disorder, unspecified; J44.9 Chronic obstructive pulmonary disease, unspecified; F32.9 Major depressive disorder, single episode, unspecified; Z98.890 Other specified postprocedural states; Z79.899 Other long term (current) drug therapy
CPT/HCPCS: 36415; 71045; 80053; 83880; 84484; 85025; 93005; 99285

== ENCOUNTER 2023-08-26 18:12 | Inpatient (IN) | payer OTHER ==
[~2023-08-26] VITALS: Ht 172.7 cm; Wt 162.0 kg
[~2023-08-26 18:12] MED LIST changes: -CLON-457 PO; +CLON-493 PO; +LOSA-415 PO; -LOSA100T4 PO
[2023-08-26 19:51] LABS: BASOPHILS % 0.3 % (0.0-2.0); HEMATOCRIT. 34.3 % (36.0-48.0); HEMOGLOBIN. 11.2 g/dL (12.0-16.0); LYMPHOCYTES % 26.2 % (20.0-50.0); MEAN CORPUSCULAR HEMOGLOBIN 29.6 pg (28.0-32.0); MEAN CORPUSCULAR HGB CONC 32.6 g/dL (31.0-37.0); MEAN CORPUSCULAR VOLUME 90.7 fL (81.0-99.0); MEAN PLATELET VOLUME 8.1 fl (7.4-10.4); NEUTROPHILS % 65.5 % (40.0-76.0); PLATELET 368 x1000/uL (130-400); RED BLOOD CELL COUNT 3.78 mill/uL (4.2-5.4); RED CELL DISTRIBUTION WIDTH 19.6 % (11.6-14.6); WHITE BLOOD COUNT 9.2 x1000/uL (4.5-11.0)
[2023-08-26 19:54] LABS: CHLORIDE 108 mEq/L (98-107); INDEX HEMOLYSI 1 (1-3); INDEX ICTERIC 1 (1-4); INDEX LIPEMIC 1 (1-3); POTASSIUM 3.7 mEq/L (3.5-5.1); SODIUM 138 mEq/L (136-145)
[2023-08-26] MEDS ORDERED: METHYLPREDNISOLONE SOD SUCC 125MG/2ML (ACT-O-VIAL) IV STA (19:59)
[2023-08-26] MEDS ORDERED: IPRATROPIUM BROMIDE (0.02%) 0.5MG/2.5ML NEB HHN STA (19:59)
[2023-08-26] MEDS ORDERED: ALBUTEROL (0.083%) 2.5MG/3ML NEB HHN SCH (20:00)
[2023-08-26 20:01] LABS: ALANINE AMINOTRANSFERASE 14 IU/L (13-61); ALBUMIN 2.8 g/dL (3.4-5.0); ASPARTATE AMINOTRANSFERASE 11 IU/L (15-37); BILIRUBIN TOTAL 0.2 mg/dL (0.1-1.0); CALCIUM 8.7 mg/dL (8.5-10.1); CARBON DIOXIDE 24 mEq/L (21-32); CREATININE 1.1 mg/dL (0.6-1.3); GLUCOSE 80 mg/dL (70-105); PROTEIN TOTAL 6.9 g/dL (6.0-8.3); UREA NITROGEN BLOOD 27 mg/dL (7-21)
[2023-08-26 20:04] LABS: TROPONIN I HIGH SENSITIVITY 21 ng/L (<54)
[2023-08-26 20:19] LABS: HCG SCREEN NEGATIVE
[2023-08-26 21:04] VITALS: PULSE 82; RESP 22; O2SAT 96
[2023-08-27] MEDS: HYDRALAZINE HCL 100MG TABLET PO SCH ×3 (06:00→21:16)
[2023-08-27] MEDS ORDERED: NON FORMULARY PATIENT HOME MED XX SCH (06:00)
[2023-08-27 06:25] VITALS: BP 130/89; PULSE 93; RESP 18; TEMP 98
[2023-08-27 06:32] VITALS: BP 130/89; PULSE 96; RESP 20; TEMP 98
[2023-08-27] MEDS ORDERED: FUROSEMIDE 40MG TABLET PO SCH (09:00)
[2023-08-27] MEDS ORDERED: CLONIDINE 0.1MG TABLET PO SCH ×2 (09:00)
[2023-08-27] MEDS ORDERED: INFLUENZA VACCINE 05/PF 0.5 ML SYRINGE IM ONE (09:15)
[2023-08-27] MEDS: METFORMIN HCL 500MG TABLET PO SCH ×2 (09:40→17:33)
[2023-08-27] MEDS: SERTRALINE HCL 100MG TABLET PO SCH (09:40)
[2023-08-27] MEDS: ASPIRIN 81MG TABLET PO SCH (09:40)
[2023-08-27] MEDS: LOSARTAN 100 MG TABLET PO SCH (09:41)
[2023-08-27] MEDS: METOPROLOL TARTRATE 100MG TABLET PO SCH ×2 (09:41→21:16)
[2023-08-27] MEDS: POTASSIUM CHLORIDE 10MEQ TABLET SR PO SCH (09:41)
[2023-08-27] MEDS: MINOXIDIL 2.5MG TABLET PO SCH ×2 (09:42→21:16)
[2023-08-27] MEDS: HYDROCHLOROTHIAZIDE 25MG TABLET PO SCH (09:42)
[2023-08-27 09:44] LABS: BASOPHILS % 0.2 % (0.0-2.0); LYMPHOCYTES % 12.7 % (20.0-50.0); MEAN CORPUSCULAR HEMOGLOBIN 29.8 pg (28.0-32.0); MEAN CORPUSCULAR HGB CONC 32.6 g/dL (31.0-37.0); MEAN CORPUSCULAR VOLUME 91.2 fL (81.0-99.0); MEAN PLATELET VOLUME 8.7 fl (7.4-10.4); NEUTROPHILS % 85.1 % (40.0-76.0); PLATELET 421 x1000/uL (130-400); RED BLOOD CELL COUNT 4.38 mill/uL (4.2-5.4); RED CELL DISTRIBUTION WIDTH 20.1 % (11.6-14.6); WHITE BLOOD COUNT 10.3 x1000/uL (4.5-11.0)
[2023-08-27] MEDS: CLONIDINE 0.1MG TABLET PO SCH ×3 (10:00→21:15)
[2023-08-27 10:08] LABS: CHLORIDE 108 mEq/L (98-107); INDEX HEMOLYSI 1 (1-3); INDEX ICTERIC 1 (1-4); INDEX LIPEMIC 1 (1-3); POTASSIUM 4.5 mEq/L (3.5-5.1); SODIUM 138 mEq/L (136-145)
[2023-08-27 10:19] LABS: CALCIUM 9.3 mg/dL (8.5-10.1); CARBON DIOXIDE 25 mEq/L (21-32); CHOLESTEROL 190 mg/dL (<200); CREATININE 0.9 mg/dL (0.6-1.3); GLUCOSE 119 mg/dL (70-105); HDL CHOLESTEROL 70 mg/dL (40-59); LDL CHOLESTEROL 108 mg/dL (5-100); TRIGLYCERIDE 89 mg/dL (0-150); UREA NITROGEN BLOOD 25 mg/dL (7-21)
[2023-08-27 12:00] VITALS: BP 131/59; PULSE 86; RESP 18; TEMP 98.6
[2023-08-27] MEDS: FUROSEMIDE 100MG/10ML VIAL IVP SCH ×2 (12:57→17:33)
[2023-08-27 16:00] VITALS: BP 128/79; PULSE 76; RESP 20; TEMP 98.4
[2023-08-27 20:00] VITALS: BP 138/62; PULSE 86; RESP 22; TEMP 96.9
[2023-08-27] MEDS ORDERED: TRAZODONE HCL 50MG TABLET PO SCH ×2 (21:00)
[2023-08-27] MEDS ORDERED: LURASIDONE 60 MG PO SCH (21:00)
[2023-08-27] MEDS ORDERED: RISPERIDONE 0.5MG TABLET PO SCH (21:00)
[2023-08-27 21:39] VITALS: PULSE 89; RESP 20; O2SAT 93
[2023-08-27] MEDS: IPRATROPIUM/ALBUTEROL 0.5-3(2.5)MG/3ML NEB HHN SCH (21:39)
[2023-08-28] VITALS (9 sets, daily range): BP systolic 112–159; BP diastolic 7–89; PULSE 69–83; RESP 20–24; TEMP 97.4–98.2; O2SAT 97–98
[2023-08-28] MEDS: IPRATROPIUM/ALBUTEROL 0.5-3(2.5)MG/3ML NEB HHN SCH ×3 (02:09→14:30)
[2023-08-28] MEDS: HYDRALAZINE HCL 100MG TABLET PO SCH ×2 (05:22→14:15)
[2023-08-28] MEDS: FUROSEMIDE 100MG/10ML VIAL IVP SCH ×2 (06:20→16:47)
[2023-08-28] MEDS: METFORMIN HCL 500MG TABLET PO SCH ×2 (07:41→17:37)
[2023-08-28] MEDS: LOSARTAN 100 MG TABLET PO SCH (09:17)
[2023-08-28] MEDS: HYDROCHLOROTHIAZIDE 25MG TABLET PO SCH (09:17)
[2023-08-28] MEDS: MINOXIDIL 2.5MG TABLET PO SCH (09:17)
[2023-08-28] MEDS: POTASSIUM CHLORIDE 10MEQ TABLET SR PO SCH (09:17)
[2023-08-28] MEDS: SERTRALINE HCL 100MG TABLET PO SCH (09:17)
[2023-08-28] MEDS: METOPROLOL TARTRATE 100MG TABLET PO SCH (09:18)
[2023-08-28] MEDS: ASPIRIN 81MG TABLET PO SCH (09:18)
[2023-08-28] MEDS: CLONIDINE 0.1MG TABLET PO SCH (09:18)
[2023-08-28] MEDS ORDERED: FURO80TA87 MT (11:53)
== END 2023-08-28 19:25 | disposition home or self-care (01) | DRG 425 ==
LOC: ER 18:12 → MICUSO 22:17 → EDBEDREQ 22:21 → EDBEDREQTM 22:21 → 7WST 08-27 05:31
PROVIDERS: ADMIT Internal Medicine; ATTEND Internal Medicine
DX: E87.70 Fluid overload, unspecified (principal); J96.00 Acute respiratory failure, unspecified whether with hypoxia or hypercapnia; E44.0 Moderate protein-calorie malnutrition; J44.9 Chronic obstructive pulmonary disease, unspecified; I50.32 Chronic diastolic (congestive) heart failure; I11.0 Hypertensive heart disease with heart failure; E66.01 Morbid (severe) obesity due to excess calories; Z91.199 Patient's noncompliance with other medical treatment and regimen due to unspecified reason; Z98.891 History of uterine scar from previous surgery; Z88.6 Allergy status to analgesic agent; Z68.43 Body mass index [BMI] 50.0-59.9, adult
CPT/HCPCS: 36415; 71045; 80048; 80053; 80061; 83036; 84484; 84703; 85025; 85379; 90686; 93005; 93970; 94640; 99285; J1940; J2930

== ENCOUNTER 2023-09-20 14:57 | Emergency (ER) | payer OTHER ==
[~2023-09-20] VITALS: Ht 170.2 cm; Wt 180.0 kg
[~2023-09-20 14:57] MED LIST changes: -CLON-493 PO; -DILT120C88 PO; -FURO-151 MT; -HYDR25TA PO; -LOSA-415 PO; +LOSA25TA26 PO; -LURA120T MT; +LURA80TA4 PO; +NALT50TA5 PO; -NIFE-32 MT; +NIFE-72 PO; -POTA-202 MT; -POTA-205 MT; -QUET200T MT; -RISP05 MT; +SERT-112 PO; -SERT100T PO; -VARE0.5T MT; +VARE1TAB24 PO
[2023-09-20 15:00] VITALS: O2SAT 98
[2023-09-20] MEDS ORDERED: PREDNISONE 20MG TABLET PO STA (15:05)
[2023-09-20] MEDS ORDERED: ALBUTEROL (0.083%) 2.5MG/3ML NEB HHN STA (15:05)
[2023-09-20] MEDS ORDERED: IPRATROPIUM BROMIDE (0.02%) 0.5MG/2.5ML NEB HHN STA (15:05)
[2023-09-20 15:34] VITALS: PULSE 80; RESP 20
[2023-09-20] MEDS ORDERED: P50 MT (15:42)
[2023-09-20 18:20] VITALS: BP 142/70; PULSE 80; RESP 20; TEMP 98.3
== END 2023-09-20 18:23 | disposition home or self-care (01) ==
LOC: ER 14:57
DX: J44.1 Chronic obstructive pulmonary disease with (acute) exacerbation (principal); I11.0 Hypertensive heart disease with heart failure; I50.9 Heart failure, unspecified; E11.9 Type 2 diabetes mellitus without complications; E78.00 Pure hypercholesterolemia, unspecified; Z98.890 Other specified postprocedural states; Z88.6 Allergy status to analgesic agent
CPT/HCPCS: 94640; 99283; J7512; Z7610 ×4

== ENCOUNTER 2024-07-26 01:23 | Inpatient (IN) | payer MEDICAID, OTHER ==
[~2024-07-26] VITALS: Ht 167.6 cm; Wt 131.5 kg
[~2024-07-26 01:23] MED LIST changes: +APIX5TAB PO; -FURO80TA87 MT; -HYDR100T26 PO; -LOSA25TA26 PO; -LURA80TA4 PO; -METF-818 MT; -METO100T16 PO; -MINO2.5T19 PO; -SERT-112 PO; -TRAZ-252 MT
[2024-07-26] MEDS ORDERED: ASPIRIN 81MG TABLET PO ONE (02:45)
[2024-07-26] MEDS ORDERED: LORAZEPAM 1MG TABLET PO ONE (02:45)
[2024-07-26 03:00] LABS: BASOPHILS % 0.3 % (0.0-2.0); DIFFERENTIAL COMMENT 0; HEMATOCRIT. 38.1 % (36.0-48.0); HEMOGLOBIN. 11.9 g/dL (12.0-16.0); LYMPHOCYTES % 26.6 % (20.0-50.0); MEAN CORPUSCULAR HGB CONC 31.3 g/dL (31.0-37.0); MEAN CORPUSCULAR VOLUME 73.6 fL (81.0-99.0); MEAN PLATELET VOLUME 8.3 fl (7.4-10.4); MONOCYTES % 8.8 % (2.0-8.0); NEUTROPHILS % 64.3 % (40.0-76.0); PLATELET 370 x1000/uL (130-400); RED BLOOD CELL COUNT 5.18 mill/uL (4.2-5.4); RED CELL DISTRIBUTION WIDTH 20.3 % (11.6-14.6); WHITE BLOOD COUNT 9.1 x1000/uL (4.5-11.0)
[2024-07-26] MEDS: LORAZEPAM 1MG TABLET PO NR (03:00)
[2024-07-26] MEDS: ASPIRIN 81MG TABLET PO NR (03:00)
[2024-07-26 03:06] LABS: CHLORIDE 102 mEq/L (98-107); SODIUM 137 mEq/L (136-145)
[2024-07-26 03:07] LABS: CARBON DIOXIDE 29 mEq/L (21-32)
[2024-07-26 03:12] LABS: GLUCOSE 73 mg/dL (70-105); UREA NITROGEN BLOOD 16 mg/dL (9-23)
[2024-07-26 03:27] LABS: POTASSIUM 2.7 mEq/L (3.5-5.1)
[2024-07-26 03:28] LABS: CREATININE 1.4 mg/dL (0.6-1.0); TROPONIN I HIGH SENSITIVITY 72 ng/L (3.0-34)
[2024-07-26] MEDS: POTASSIUM CHLORIDE 20MEQ/PACKET PO NR (04:32)
[2024-07-26] MEDS: KCL 20MEQ/100ML PREMIX 100 ML IV NR (04:32)
[2024-07-26] MEDS: HYDRALAZINE 20MG/ML VIAL IV NR (04:32)
[2024-07-26] MEDS: LABETALOL 5MG/ML 4ML INJ IV ONE (05:55)
[2024-07-26 05:59] LABS: TROPONIN I HIGH SENSITIVITY 67 ng/L (3.0-34)
[2024-07-26] MEDS ORDERED: ACETAMINOPHEN 325MG TABLET PO PRN ×4 (07:00→07:15)
[2024-07-26] MEDS ORDERED: ZOLPIDEM TARTRATE 5MG TABLET PO PRN (07:00)
[2024-07-26] MEDS ORDERED: NITROGLYCERIN 0.4MG TABLET SL SL PRN (07:00)
[2024-07-26] MEDS ORDERED: IPRATROPIUM/ALBUTEROL 0.5-3(2.5)MG/3ML NEB NEB PRN (07:00)
[2024-07-26] MEDS ORDERED: ONDANSETRON HCL 4MG/2ML INJ IV PRN (07:00)
[2024-07-26] MEDS ORDERED: GUAIFENESIN 200MG/10ML SUGAR FREE UDC PO PRN (07:00)
[2024-07-26] MEDS ORDERED: MAGNESIUM/ALUMINUM HYDROXIDE/SIMETHICONE 30ML UDC PO PRN (07:00)
[2024-07-26] MEDS ORDERED: DOCUSATE SODIUM 100MG CAPSULE PO PRN (07:00)
[2024-07-26] MEDS ORDERED: CLONIDINE 0.1MG TABLET PO PRN (07:00)
[2024-07-26] MEDS: POTASSIUM CHLORIDE 20MEQ TABLET SR PO NR (07:08)
[2024-07-26] MEDS: LOSARTAN 50 MG TABLET PO SCH (07:08)
[2024-07-26] MEDS: NITROGLYCERIN OINT 1GM/INCH UDPKT TD SCH (07:09)
[2024-07-26 07:27] LABS: *AMPHETAMINES SCREEN URINE NEGATIVE (NEGATIVE); *BARBITURATES SCREEN URINE NEGATIVE (NEGATIVE); *BENZODIAZEPINES SCREEN URINE NEGATIVE (NEGATIVE); *COCAINE SCREEN URINE PRESUMPTIVE POSITIVE (NEGATIVE); METHADONE URINE SCREEN NEGATIVE (NEGATIVE); OPIATES URINE SCREEN NEGATIVE (NEGATIVE)
[2024-07-26 07:28] LABS: CANNABINOID URINE SCREEN PRESUMPTIVE POSITIVE (NEGATIVE); ECSTASY MDMA SCREEN URINE NEGATIVE (NEGATIVE); PHENCYCLIDINE URINE SCREEN NEGATIVE (NEGATIVE)
[2024-07-26 07:53] LABS: IRON 25 ug/dL (50-170)
[2024-07-26 07:54] LABS: TRIGLYCERIDE 135 mg/dL (0-150)
[2024-07-26 07:55] LABS: LDL CHOLESTEROL 85 mg/dL (5-100)
[2024-07-26 07:56] LABS: CHOLESTEROL 163 mg/dL (<200); HDL CHOLESTEROL 48 mg/dL (>65); TOTAL IRON BINDING CAPACITY 357 ug/dl (250-425)
[2024-07-26 08:00] VITALS: BP 147/72; PULSE 83; RESP 20; TEMP 36.6696; O2SAT 100
[2024-07-26 08:00] LABS: FOLIC ACID (FOLATE) SERUM > 20.00 ng/mL (>5.38); VITAMIN B12 SERUM 685 pg/mL (211-911)
[2024-07-26 08:01] LABS: T4 FREE 1.17 ng/dL (0.89-1.76)
[2024-07-26 08:03] LABS: ETHANOL BLOOD < 10 mg/dL (<10)
[2024-07-26 09:00] VITALS: BP 147/72; PULSE 83; RESP 20; TEMP 36.6404; TEMP 36.6696; O2SAT 96
[2024-07-26] MEDS: ENOXAPARIN 40MG/0.4ML SYR SUBCUT SCH (09:16)
[2024-07-26] MEDS: NIFEDIPINE XL 60MG TAB PO SCH (09:17)
[2024-07-26] MEDS: FAMOTIDINE 20MG TABLET PO SCH (09:17)
[2024-07-26] MEDS: METOPROLOL TARTRATE 25MG TABLET PO SCH (09:21)
[2024-07-26 12:00] VITALS: BP_SYST 134; BP_SYST 144; BP_DIAS 77; BP_DIAS 95; PULSE 76; PULSE 81; RESP 18; RESP 19; TEMP 36.61404; TEMP 36.72516; O2SAT 100; O2SAT 96
[2024-07-26 16:00] VITALS: BP 131/74; PULSE 76; RESP 18; TEMP 36.50292; O2SAT 100
[2024-07-26 17:36] LABS: CREATINE KINASE MB FRACTION 1.5 ng/mL (0.5-3.6)
[2024-07-26] MEDS: FUROSEMIDE 40MG/4ML VIAL IVP SCH (19:24)
[2024-07-26 20:00] VITALS: BP 141/82; PULSE 78; RESP 20; TEMP 36.89184; O2SAT 98
[2024-07-26] MEDS: LABETALOL HCL 200MG TABLET PO SCH (21:02)
[2024-07-27] VITALS: BP 161/98; PULSE 75; RESP 18; TEMP 37.11408; O2SAT 98
[2024-07-27 00:54] LABS: CREATINE KINASE MB FRACTION 1.2 ng/mL (0.5-3.6)
[2024-07-27 04:00] VITALS: BP 159/93; PULSE 76; RESP 16; TEMP 36.6696; O2SAT 98
[2024-07-27 07:38] LABS: CHLORIDE 103 mEq/L (98-107); POTASSIUM 3.3 mEq/L (3.5-5.1); SODIUM 139 mEq/L (136-145)
[2024-07-27 07:39] LABS: CALCIUM 8.9 mg/dL (8.7-10.4); CARBON DIOXIDE 30 mEq/L (21-32)
[2024-07-27 07:44] LABS: CREATININE 1.2 mg/dL (0.6-1.0); GLUCOSE 82 mg/dL (70-105)
[2024-07-27 07:45] LABS: UREA NITROGEN BLOOD 29 mg/dL (9-23)
[2024-07-27 07:46] LABS: ALANINE AMINOTRANSFERASE 8 IU/L (10-49); ALBUMIN 3.9 g/dL (3.2-4.8); ASPARTATE AMINOTRANSFERASE 16 IU/L (<34); BASOPHILS % 0.4 % (0.0-2.0); DIFFERENTIAL COMMENT 0; HEMATOCRIT. 34.2 % (36.0-48.0); HEMOGLOBIN. 10.7 g/dL (12.0-16.0); LYMPHOCYTES % 35.9 % (20.0-50.0); MEAN CORPUSCULAR HEMOGLOBIN 23.2 pg (28.0-32.0); MEAN CORPUSCULAR HGB CONC 31.3 g/dL (31.0-37.0); MEAN PLATELET VOLUME 8.7 fl (7.4-10.4); MONOCYTES % 10.8 % (2.0-8.0); NEUTROPHILS % 52.9 % (40.0-76.0); PLATELET 314 x1000/uL (130-400); RED BLOOD CELL COUNT 4.62 mill/uL (4.2-5.4); RED CELL DISTRIBUTION WIDTH 20.3 % (11.6-14.6); WHITE BLOOD COUNT 6.2 x1000/uL (4.5-11.0)
[2024-07-27 07:47] LABS: BILIRUBIN TOTAL 0.3 mg/dL (0.1-1.0); PHOSPHORUS 4.8 mg/dL (2.5-4.9); PROTEIN TOTAL 6.6 g/dL (6.0-8.3)
[2024-07-27] MEDS: ASPIRIN 81MG EC TABLET PO SCH (09:00)
[2024-07-27 12:00] VITALS: BP 150/90; PULSE 73; RESP 18; TEMP 36.89184; O2SAT 98
[2024-07-27] MEDS: HYDRALAZINE HCL 25MG TABLET PO SCH (14:00)
[2024-07-27 16:13] VITALS: BP 160/80; RESP 16; TEMP 36.44736; O2SAT 99
[2024-07-27] MEDS: MAGNESIUM 2 G PREMIX 50 ML IV NR (19:10)
[2024-07-27 20:00] VITALS: BP 146/78; PULSE 81; RESP 19; TEMP 36.22512; O2SAT 97
[2024-07-27] MEDS: ENOXAPARIN 30MG/0.3ML SYR SUBCUT SCH (21:16)
[2024-07-28] VITALS: BP 117/66; PULSE 70; RESP 18; TEMP 36.61404; O2SAT 97
[2024-07-28] MEDS: KETOROLAC 15MG/ML VIAL IV PRN (01:10)
[2024-07-28 04:00] VITALS: BP 140/72; PULSE 81; RESP 18; TEMP 36.50292; O2SAT 96
[2024-07-28 08:00] VITALS: BP 162/83; PULSE 71; RESP 20; TEMP 36.50292; O2SAT 96
[2024-07-28] MEDS ORDERED: HYDR25TA78 PO (11:32)
[2024-07-28] MEDS ORDERED: LOSA50TA41 PO (11:32)
[2024-07-28] MEDS ORDERED: FURO-151 MT (11:32)
[2024-07-28] MEDS ORDERED: SPIR25TA MT (11:32)
[2024-07-28] MEDS ORDERED: ISMO20 MT (11:32)
[2024-07-28] MEDS ORDERED: NIFE-32 PO (11:32)
[2024-07-28 12:00] VITALS: BP 155/79; PULSE 65; RESP 20; TEMP 36.50292; O2SAT 99
[2024-07-28 12:55] LABS: CALCIUM 8.9 mg/dL (8.7-10.4); POTASSIUM 3.3 mEq/L (3.5-5.1)
[2024-07-28 13:01] LABS: CREATININE 1.2 mg/dL (0.6-1.0)
[2024-07-28 14:50] VITALS: BP 155/79; PULSE 65; TEMP 97.7; O2SAT 99
== END 2024-07-28 17:20 | disposition home or self-care (01) | DRG 190 ==
LOC: ER 01:23 → 7EST 04:55
PROVIDERS: ADMIT Internal Medicine; ATTEND Internal Medicine
DX: I21.4 Non-ST elevation (NSTEMI) myocardial infarction (principal); J96.00 Acute respiratory failure, unspecified whether with hypoxia or hypercapnia; I50.33 Acute on chronic diastolic (congestive) heart failure; N17.9 Acute kidney failure, unspecified; E66.9 Obesity, unspecified; E87.6 Hypokalemia; J44.9 Chronic obstructive pulmonary disease, unspecified; I11.0 Hypertensive heart disease with heart failure; Z68.42 Body mass index [BMI] 45.0-49.9, adult; F17.210 Nicotine dependence, cigarettes, uncomplicated; Z98.891 History of uterine scar from previous surgery; E78.00 Pure hypercholesterolemia, unspecified; F14.10 Cocaine abuse, uncomplicated
CPT/HCPCS: 36415; 71045; 80048; 80053; 80061; 80305; 80320; 82550; 82553; 82607; 82746; 83036; 83540; 83550; 83735; 83880; 84100; 84439; 84443; 84484; 85025; 85379; 93005; 93970; 99291; J0360; J1650; J1885; J1940; J3475; J3480; J3490; G0480

== ENCOUNTER 2024-08-01 23:48 | Emergency (ER) | payer OTHER ==
[~2024-08-01] VITALS: Ht 170.2 cm; Wt 123.0 kg
[~2024-08-01 23:48] MED LIST changes: +FURO-151 MT; +HYDR25TA78 PO; +ISMO20 MT; +LOSA50TA41 PO; -NALT50TA5 PO; +NIFE-32 PO; -NIFE-72 PO; +SPIR25TA MT; -VARE1TAB24 PO
[2024-08-01 23:52] VITALS: TEMP 98.6; O2SAT 96
[2024-08-02] MEDS: LABETALOL 5MG/ML 4ML INJ IV ONE (00:40)
[2024-08-02 00:46] LABS: BASOPHILS % 0.4 % (0.0-2.0); DIFFERENTIAL COMMENT 0; HEMATOCRIT. 35.7 % (36.0-48.0); LYMPHOCYTES % 13.1 % (20.0-50.0); MEAN CORPUSCULAR HEMOGLOBIN 22.9 pg (28.0-32.0); MEAN CORPUSCULAR HGB CONC 30.7 g/dL (31.0-37.0); MEAN CORPUSCULAR VOLUME 74.5 fL (81.0-99.0); MEAN PLATELET VOLUME 8.7 fl (7.4-10.4); MONOCYTES % 14.1 % (2.0-8.0); NEUTROPHILS % 72.4 % (40.0-76.0); PLATELET 319 x1000/uL (130-400); RED CELL DISTRIBUTION WIDTH 20.7 % (11.6-14.6); WHITE BLOOD COUNT 7.6 x1000/uL (4.5-11.0)
[2024-08-02 00:52] LABS: CHLORIDE 104 mEq/L (98-107); POTASSIUM 3.6 mEq/L (3.5-5.1); SODIUM 140 mEq/L (136-145)
[2024-08-02 00:53] LABS: CARBON DIOXIDE 32 mEq/L (21-32)
[2024-08-02 00:54] LABS: CALCIUM 9.2 mg/dL (8.7-10.4)
[2024-08-02 00:58] LABS: CREATININE 1.2 mg/dL (0.6-1.0); GLUCOSE 91 mg/dL (70-105); UREA NITROGEN BLOOD 28 mg/dL (9-23)
[2024-08-02 01:37] LABS: TROPONIN I HIGH SENSITIVITY 52 ng/L (3.0-34)
[2024-08-02 01:41] LABS: PROTHROMBIN TIME 11.4 sec (9.6-11.0)
[2024-08-02] MEDS: FUROSEMIDE 40MG/4ML VIAL IVP ONE (02:20)
[2024-08-02] MEDS: NITROGLYCERIN 0.4MG TABLET SL SL ONE (02:21)
[2024-08-02] MEDS: ENALAPRIL 2.5MG/2ML VIAL 2ML IV ONE (02:21)
[2024-08-02 04:44] VITALS: BP 147/89; PULSE 88; RESP 25; O2SAT 99
[2024-08-02 05:39] LABS: TROPONIN I HIGH SENSITIVITY 50 ng/L (3.0-34)
== END 2024-08-02 04:45 | disposition admitted as inpatient to this hospital (09) ==
LOC: ER 23:48
DX: I50.9 Heart failure, unspecified (principal); I11.0 Hypertensive heart disease with heart failure; J44.9 Chronic obstructive pulmonary disease, unspecified; E11.9 Type 2 diabetes mellitus without complications; E78.00 Pure hypercholesterolemia, unspecified; Z98.890 Other specified postprocedural states; Z79.899 Other long term (current) drug therapy; Z88.6 Allergy status to analgesic agent
CPT/HCPCS: 36415; 71045; 80048; 83880; 84484; 85025; 93005; 96374; 96375; 99291; J1940; J3490